=== PATIENT | female | born 1965 | race Two or more races ===

== ENCOUNTER 2021-05-17 07:46 | Day surgery (SDC) | payer OTHER ==
[~2021-05-17] VITALS: Ht 160 cm; Wt 90.7 kg
[~2021-05-17 07:46] MED LIST: ALBU108A14 IN; AMLO-483 PO; BENA10TA15 PO; ESTR0.3T PO; LORA-622 PO; MAGN400T40 PO; OXYC325T14 PO; ROSU5TAB5 PO; SITA50TA25 PO; TRAM50TA2 PO
[2021-05-17] MEDS ORDERED: ceFAZolin 1GM/50ML 100 ML IV ONE (07:55)
[2021-05-17] MEDS ORDERED: fentaNYL CITRATE 100 MCG/2 ML VL ONE (08:22)
[2021-05-17] MEDS ORDERED: fentaNYL CITRATE 5 ML ONE (08:22)
[2021-05-17] MEDS ORDERED: SODIUM CHLORIDE LOCK 10 ML ONE (08:23)
[2021-05-17] MEDS ORDERED: ROCURONIUM 10MG/ML 10ML VIAL IV ONE (08:23)
[2021-05-17] MEDS ORDERED: PROPOFOL 10 MG/ML 20 ML IV ONE (08:23)
[2021-05-17] MEDS ORDERED: MIDAZOLAM HCL 2MG/2ML 2ml VIAL (1mg/ml) ONE (08:23)
[2021-05-17] MEDS ORDERED: ONDANSETRON HCL 4 MG/2 ML VIAL ONE (08:23)
[2021-05-17] MEDS ORDERED: ACCU-CHEK COMFORT CURVE STRIP VI ONE (10:30)
[2021-05-17] MEDS ORDERED: METOCLOPRAMIDE HCL 5MG/ml INJ 2ml VIAL IV PRN (10:30)
[2021-05-17] MEDS ORDERED: HYDROmorphone HCL 2 MG/ML VL IV PRN (10:30)
[2021-05-17] MEDS ORDERED: MORPHINE SULFATE 4 MG/ML SYR/VIAL IV PRN (10:30)
[2021-05-17] MEDS ORDERED: EPINEPHrine HCL 1 MG/1 ML AMP ONE (10:32)
[2021-05-17] MEDS ORDERED: BUPIVACAINE HCL 50 ML ONE (10:32)
[2021-05-17] MEDS ORDERED: ACETAMINOPHEN IV 100 ML IV ONE (12:53)
[2021-05-17] MEDS ORDERED: HYDROmorphone HCL 2 MG/ML VL ONE (12:53)
[2021-05-17] MEDS ORDERED: ACETAMINOPHEN IV 1000 MG/100ML (10MG/ML) IV ONE (13:00)
[2021-05-17] MEDS ORDERED: HYDROmorphone HCL 2 MG/ML VL IV ONE (13:00)
[2021-05-17 13:35] VITALS: BP 132/67
== END 2021-05-17 13:55 | disposition home or self-care (01) ==
LOC: SUR 07:46
PROVIDERS: ATTEND Orthopaedic Surgery Sports Medicine
DX: M75.01 Adhesive capsulitis of right shoulder (principal); J45.909 Unspecified asthma, uncomplicated; I10 Essential (primary) hypertension; G43.909 Migraine, unspecified, not intractable, without status migrainosus; E11.40 Type 2 diabetes mellitus with diabetic neuropathy, unspecified; E78.5 Hyperlipidemia, unspecified; G89.29 Other chronic pain; M75.120 Complete rotator cuff tear or rupture of unspecified shoulder, not specified as traumatic; Z20.822 Contact with and (suspected) exposure to COVID-19; Z79.899 Other long term (current) drug therapy; Z98.890 Other specified postprocedural states; Z88.8 Allergy status to other drugs, medicaments and biological substances; Z68.35 Body mass index [BMI] 35.0-35.9, adult
CPT/HCPCS: 29822; 29826; 29827; 82962; J0131; J0171; J0690; J1170; J2250; J2270; J2405; J2704; J3010; J3490; U0003; A4565